=== PATIENT | male | born 1965 | race Caucasian/White ===

== ENCOUNTER → 2021-03-29 | Day surgery (SDC) | payer OTHER ==
[~2021-03-29] VITALS: Ht 182.9 cm; Wt 88.5 kg
[~2021-03-29] MED LIST: ASPIRIN EC81 MG PO; CELEXA20 MG PO; PRINIVIL10 MG PO; XYOSTED50 MG/0.5 IJ
[2021-03-29 07:25] LABS: HCT 55.9 % (42.0-52.0); HGB 19.2 g/dl (13.2-18.0); MCH 29.7 pg (25.0-31.0); MCHC 34.3 g/dL (32.0-36.0); MCV 86.4 fL (78.0-100.0); MPV 9.5 fL (6.0-9.5); RBC 6.47 M/uL (4.70-6.00); RDW 12.3 % (11.5-14.0); WBC 8.6 K/uL (4.0-10.5)
[2021-03-29 07:41] LABS: ALBUMIN 4.1 g/dL (3.4-5.0); BILIRUBIN - TOTAL 0.7 mg/dL (0.2-1.0); BUN/CREAT RATIO (CALC) 16.2 RATIO; CREATININE 1.05 mg/dL (0.67-1.17); GLOBULIN (CALCULATION) 3.8 g/dL; POTASSIUM 3.7 mmol/L (3.5-5.1); TOTAL PROTEIN 7.9 g/dL (6.4-8.2)
== END | disposition home or self-care (01) ==
LOC: FAS 06:56
PROVIDERS: Surgery
DX: Z12.11 Encounter for screening for malignant neoplasm of colon (principal); I10 Essential (primary) hypertension; K21.9 Gastro-esophageal reflux disease without esophagitis; Z80.0 Family history of malignant neoplasm of digestive organs; Z79.82 Long term (current) use of aspirin; Z79.899 Other long term (current) drug therapy
CPT/HCPCS: 36415; 80053; J2250; J2704; J7120